=== PATIENT | female | born 1940 | race Caucasian/White ===

== ENCOUNTER 2020-12-19 10:03 | Outpatient (CLI) | payer MEDICARE | END 2020-12-19 10:04 | disposition home or self-care (01) | LOC: BICMRI 10:03 | PROVIDERS: ATTEND Registered Nurse | DX: M54.6 Pain in thoracic spine (principal); M48.061 Spinal stenosis, lumbar region without neurogenic claudication | CPT/HCPCS: 72146; 72148 ==